=== PATIENT | male | born 1955 | race American Indian/Alaskan Native ===

== ENCOUNTER 2016-07-24 21:19 | Emergency (ER) | payer MEDICARE ==
[2016-07-24 22:57] LABS: Eosinophils % (Auto) 1.6 % (0.0-4.3); Hematocrit 53.5 % (35.5-45.6); Hemoglobin 17.6 gm/dl (11.8-15.2); Mean Corpuscular HGB Conc 33 % (32-34); Mean Corpuscular Hemoglobin 32 pg (28-32); Mean Corpuscular Volume 97 fl (84-94); Platelet Count 191 K/mm3 (140-440); Red Blood Count 5.54 M/mm3 (3.65-5.03); Red Cell Distribution Width 14.5 % (13.2-15.2); White Blood Count 7.1 K/mm3 (4.5-11.0)
[2016-07-24 23:11] LABS: Anion Gap 16 mmol/L; B-Hydroxybutyrate 1.2 mg/dL (0.2-2.8); Blood Urea Nitrogen 15 mg/dL (9-20); Calcium 8.5 mg/dL (8.4-10.2); Carbon Dioxide 25 mmol/L (22-30); Chloride 101.3 mmol/L (98-107); Glucose 77 mg/dL (75-100); Potassium 5.1 mmol/L (3.6-5.0); Sodium 137 mmol/L (137-145)
[2016-07-25 04:25] VITALS: BP 178/116
--- NOTE | 2016-07-29 05:43 | ED Elopement Review ---
ED Pt Elopement review - Results review Lab results: Laboratory Tests 07/24/16 07/24/16 07/24/16 21:58 22:33 22:33 WBC 7.1 RBC 5.54 H Hgb 17.6 H Hct 53.5 H MCV 97 H MCH 32 MCHC 33 RDW 14.5 Plt Count 191 Lymph % (Auto) 25.2 Titus % (Auto) 9.0 H Eos % (Auto) 1.6 Baso % (Auto) 1.0 Lymph # 1.8 Titus # 0.6 Eos # 0.1 Baso # 0.1 Seg Neutrophils % 63.2 Seg Neutrophils # 4.5 VBG pH Sodium 137 Potassium 5.1 H Chloride 101.3 Carbon Dioxide 25 Anion Gap 16 BUN 15 Creatinine 1.2 Estimated GFR > 60 BUN/Creatinine Ratio 12.50 Glucose 77 POC Glucose 94 Calcium 8.5 Ketones 1.2 07/24/16 07/25/16 22:33 01:14 WBC RBC Hgb Hct MCV MCH MCHC RDW Plt Count Lymph % (Auto) Titus % (Auto) Eos % (Auto) Baso % (Auto) Lymph # Titus # Eos # Baso # Seg Neutrophils % Seg Neutrophils # VBG pH 7.302 L Sodium Potassium Chloride Carbon Dioxide Anion Gap BUN Creatinine Estimated GFR BUN/Creatinine Ratio Glucose POC Glucose 60 L Calcium Ketones - Call Back decision Pt Call Back Decision: No action required
== END 2016-07-25 14:50 | disposition left against medical advice (07) ==
LOC: ED 21:19
DX: E11.9 Type 2 diabetes mellitus without complications (principal); I10 Essential (primary) hypertension; Z53.21 Procedure and treatment not carried out due to patient leaving prior to being seen by health care provider
CPT/HCPCS: 36415; 80048; 82010; 82805; 82962; 85025